=== PATIENT | female | born 1955 | race Caucasian/White ===

== ENCOUNTER 2016-12-11 15:51 | Inpatient (IN) ==
--- NOTE | 2016-12-11 17:48 | Event Note ---
Interval note Patient is a 61-year-old female who underwent incarcerated ventral hernia repair by Dr. Recio. She was discharged approximately a week ago to [facility]. She admits that she has not improved and had pain at the time of discharge. She says she "was faking it" so that she could go home. Her pain has continued. She denies fever nausea vomiting or any problems with bowel movements. She has been having normal-appearing bowel movements. She tolerates diet but admits to poor appetite. She complains of pain mostly along the right lower quadrant near the suspected lateral edge of the repair. Her NORMA drain output has not had very much in the last several days. It appears serosanguineous. Her abdomen is soft appropriately tender with firmness i under the incision that may represent the drain or possibly recurrence and mesh. Her lab work done today at the outside facility largely appeared normal with slight elevation in white blood cell count of 11.2. There was no shift. CT scan was done which prompted her transfer. I read the report which details some phlegmonous change within the abdomen and possible abscess formation. The images are not yet available for review as they have not been loaded into the system. Patient does not appear toxic. We will start antibiotics and IV fluids. We will continue with her diet for now. I will review the CT images when available. This may be something amenable to percutaneous drainage. There is no obvious infection of the incision or any purulent fluid in the NORMA drain.
[2016-12-11] MEDS ORDERED: ONDANSETRON 4 MG/2 ML VIAL IV PRN (17:49)
[2016-12-11] MEDS ORDERED: ACETAMINOPHEN 325 MG TABLET PO PRN (17:49)
[2016-12-11] MEDS: LACTATED RINGERS 1,000 ML IV SCH (19:12)
[2016-12-11] MEDS: metroNIDAZOLE INJ 500 MG in PREMIX 1 EACH IV SCH (19:12)
[2016-12-11] MEDS: MORPHINE 2 MG/1 ML SYRINGE IV PRN (20:10)
[2016-12-11] MEDS: PIPERACILLIN/TAZOBACTAM 3,375 MG in SODIUM CHLORIDE 0.9% 100 ML IV SCH (20:12)
[2016-12-12] MEDS: metroNIDAZOLE INJ 500 MG in PREMIX 1 EACH IV SCH ×3 (01:59→17:50)
[2016-12-12] MEDS: MORPHINE 2 MG/1 ML SYRINGE IV PRN ×4 (03:40→20:29)
[2016-12-12] MEDS: PIPERACILLIN/TAZOBACTAM 3,375 MG in SODIUM CHLORIDE 0.9% 100 ML IV SCH ×3 (03:40→20:28)
[2016-12-12 04:13] LABS: Apearance,Urine CLEAR (Clear); Bilirubin,Urine Negative (Negative); Blood, Urine Small mg/dL (Negative); Glucose,Urine (UA) Negative (Negative); Ketones,Urine Negative (Negative); Nitrite,Urine Negative (Negative); Protein,Urine Negative; RBC,Urine 23 /HPF (0-4); Squamous Epithelial Cell,Urine Occasional /HPF (0-10); Urine Color Yellow (Yellow); Urine Specific Gravity 1.021 (1.001-1.035); Urine Urobilinogen < 2.0 EU/DL (0.2-1.0); WBC,Urine 3 /HPF (0-6)
[2016-12-12] MEDS: LACTATED RINGERS 1,000 ML IV SCH ×2 (06:29→10:31)
[2016-12-12 06:51] LABS: Calcium 8.8 MG/DL (8.5-10.1); Osmolality,Calculated 284.3 MOS/KG (273-304); Potassium 4.4 MMOL/L (3.5-5.1)
[2016-12-12 07:01] LABS: Basophils # 0.1 10*3/uL (0.0-0.2); Eosinophils # 1.4 10*3/uL (0.0-0.87); Eosinophils % 18.5 % (0.00-10.9); Hemoglobin 11.2 GM/DL (12.0-16.0); Immature Granulocytes % 0.5 %; Immature Granulocytes Absolute 0.04 #; Lymphocytes # 1.9 10*3/uL (1.4-4.0); Lymphocytes % 24.3 % (21.3-54.2); Mean Corpuscular Hemoglobin 31 PG (27-34); Mean Corpuscular Volume 96.4 FL (87-102); Mean Platelet Volume 10.3 FL (9.6-12.0); Monocytes % 12.5 % (1.7-12.7); NRBC # 0.04 10*3/uL; Neutrophils # 3.3 10*3/uL (1.4-7.4); Neutrophils % 43.2 % (38.7-73.9); Platelet Count 270 T/CUMM (130-400); Red Blood Count 3.63 MC/CUMM (3.8-5.5); Red Cell Distribution Width 13.8 % (9.3-17.3); White Blood Count 7.6 T/CUMM (4-12)
[2016-12-12 07:51] LABS: Eosinophils 17 % (0-10); Lymphocytes 31 % (20-55); Platelet Estimate Adequate; Segmented Neutrophils 41 % (50-85); Total Cells Counted 100
[2016-12-12] MEDS: PANTOPRAZOLE 40 MG TABLET PO SCH (08:56)
[2016-12-12] MEDS ORDERED: DIAZEPAM 5 MG TABLET ONE (09:24)
[2016-12-12] MEDS: DIAZEPAM 5 MG TABLET PO SCH ×3 (09:34→20:28)
--- NOTE | 2016-12-12 10:08 | Event Note ---
Patient complains of some vaginal bleeding. She is afebrile and her vital signs are stable. She still has tenderness in the right abdomen. She now states that she wants to go home to look for her son. Apparently he got out of [facility] and now is missing. I have reviewed the CT scan and the images look better than what the report says. There is a phlegmon within the right abdomen but I do not see any obvious fluid collection. This may represent an omental infarction. Otherwise there are normal postoperative changes in the subcutaneous tissue and the hernia repair appears intact. I suspect the firm area is just the NORMA drain coursing in that area. She does not have any peritoneal signs. She has mild to moderate tenderness in the right abdomen and is appropriately tender elsewhere. NORMA drain with minimal serosanguineous output. Her labs look okay. Plan: We will stop her IV fluids. Continue diet. Will consult ELECTRIC REFRIGERATOR SERVICER for the vaginal bleeding. Was going to try Toradol for the inflammation within the abdomen which I suspect is a omental infarction. Patient states she is allergic to Toradol. I am going to continue antibiotics for now. We will watch her and see how she does clinically. If she does not seem to improve and may need to repeat the CT scan to see if there is any development of a fluid collection
[2016-12-12] MEDS ORDERED: MAGNESIUM HYDROXIDE SUSP 30 ML UDCUP PO PRN (13:13)
[2016-12-12] MEDS ORDERED: SODIUM PHOSPHATE ENEMA 133 ML BOTTLE RECTAL PRN (13:15)
[2016-12-12] MEDS ORDERED: BISACODYL 10 MG SUPP RECTAL PRN (13:16)
[2016-12-12] MEDS ORDERED: BUTALBITAL/ACETAMIN/CAFFEINE 50-325-40 MG TABLET PO PRN (14:00)
[2016-12-12] MEDS ORDERED: NICOTINE 14 MG/24 HR PATCH TRANSDERM ONE (15:00)
[2016-12-12] MEDS: GABAPENTIN 400 MG CAPSULE PO SCH ×2 (17:50→20:29)
[2016-12-12] MEDS: DOCUSATE SODIUM 100 MG CAPSULE PO SCH (20:28)
[2016-12-12] MEDS: AMITRIPTYLINE 50 MG TABLET PO SCH (20:28)
[2016-12-12] MEDS: clonazePAM 0.5 MG TABLET PO SCH (20:29)
[2016-12-13] MEDS: metroNIDAZOLE INJ 500 MG in PREMIX 1 EACH IV SCH ×3 (02:08→18:20)
[2016-12-13] MEDS: PIPERACILLIN/TAZOBACTAM 3,375 MG in SODIUM CHLORIDE 0.9% 100 ML IV SCH ×3 (03:11→20:31)
[2016-12-13] MEDS: MORPHINE 2 MG/1 ML SYRINGE IV PRN ×5 (04:17→22:55)
[2016-12-13] MEDS: GABAPENTIN 400 MG CAPSULE PO SCH ×4 (09:24→20:31)
[2016-12-13] MEDS: PANTOPRAZOLE 40 MG TABLET PO SCH (09:25)
[2016-12-13] MEDS: ATENOLOL 50 MG TABLET PO SCH (09:25)
[2016-12-13] MEDS: NICOTINE 14 MG/24 HR PATCH TRANSDERM SCH (09:25)
[2016-12-13] MEDS: DOCUSATE SODIUM 100 MG CAPSULE PO SCH ×2 (09:25→23:11)
[2016-12-13] MEDS: clonazePAM 0.5 MG TABLET PO SCH ×2 (09:25→20:31)
[2016-12-13] MEDS: DIAZEPAM 5 MG TABLET PO SCH ×3 (09:25→20:31)
--- NOTE | 2016-12-13 10:18 | Event Note ---
Status post ventral hernia repair. Return with some abdominal pain. CT showed a phlegmon that I suspect is probably omental infarction. I do not see any fluid collection to drain. She has been afebrile vital signs stable. She complains of some vaginal bleeding. Gynecology has been consulted. Her abdomen is soft mildly tender on the right. Nondistended. NORMA drain with serosanguineous fluid. There is no erythema or cellulitis. Dr. Recio will return tomorrow.
[2016-12-13] MEDS: AMITRIPTYLINE 50 MG TABLET PO SCH (20:31)
[2016-12-14] MEDS: metroNIDAZOLE INJ 500 MG in PREMIX 1 EACH IV SCH ×3 (01:40→18:00)
[2016-12-14] MEDS: PIPERACILLIN/TAZOBACTAM 3,375 MG in SODIUM CHLORIDE 0.9% 100 ML IV SCH ×2 (03:00→12:45)
[2016-12-14] MEDS: MORPHINE 2 MG/1 ML SYRINGE IV PRN ×2 (06:53→10:10)
[2016-12-14] MEDS: clonazePAM 0.5 MG TABLET PO SCH (09:17)
[2016-12-14] MEDS: NICOTINE 14 MG/24 HR PATCH TRANSDERM SCH (09:17)
[2016-12-14] MEDS: PANTOPRAZOLE 40 MG TABLET PO SCH (09:19)
[2016-12-14] MEDS: ATENOLOL 50 MG TABLET PO SCH (09:20)
[2016-12-14] MEDS: DOCUSATE SODIUM 100 MG CAPSULE PO SCH (09:20)
[2016-12-14] MEDS: GABAPENTIN 400 MG CAPSULE PO SCH ×3 (09:50→17:00)
[2016-12-14] MEDS: DIAZEPAM 5 MG TABLET PO SCH ×2 (09:56→16:56)
--- NOTE | 2016-12-14 11:06 | General Surg History&Physical ---
Assessment and Plan (1) Ventral hernia with bowel obstruction Status: Acute Assessment and plan: There is not appear to be any complications related to her ventral hernia repair. Her CT scan looks most consistent with an omental torsion but there is some phlegmonous changes and this will need to be evaluated further with another CT scan prior to her going back to [place]. A PROFESSOR OF GENETICS consult has been placed to evaluate for her vaginal bleeding but she has already had a hysterectomy. She is refusing Toradol but I have encouraged her to take Toradol and stop her IV pain medication and see how things go. She looks comfortable and not in any pain when I examine her. She is asking for Pal[place] 10 by think we should start turning down her narcotic medications. Current Visit: No History of Present Illness Chief complaint: Abdominal pain History of present illness: Ms. Mims is a 61 year old female who underwent an open ventral hernia repair with mesh about 2 weeks ago and was readmitted over the weekend after her abdominal pain was not improving and a repeat CT scan was done at [place] which demonstrated some inflammatory changes in the abdomen. She is afebrile and her labs are normal on transfer but she is also complaining of some new vaginal bleeding. Home Medications Medication Instructions Recorded Confirmed Type Atenolol 50 mg PO QAM 11/30/16 12/11/16 History Butalb/Acetaminophen/Caffeine 1 each PO Q4H PRN 11/30/16 12/11/16 History [Esgic Capsule] Gabapentin 800 mg PO QID 11/30/16 12/11/16 History clonazePAM [Clonazepam] 2 mg PO BID 11/30/16 12/11/16 History HYDROcodone/ACETAMIN 7.5-325 1 tablet PO Q4H PRN #0 tablet 12/04/16 12/11/16 Rx [[place] 7.5-325] Nicotine 14 mg/24 Hr Patch 1 patch TRANSDERM DAILY patch 12/04/16 12/11/16 Rx [Nicoderm CQ 14 mg/24 hr Patch] Amitriptyline [Elavil] 50 mg PO BEDTIME 12/11/16 12/11/16 History Bisacodyl Supp [Dulcolax Supp] 1 supp RECTAL DIRECTED 12/11/16 12/11/16 History Ciprofloxacin Tab [Cipro Tab] 500 mg PO BID 12/11/16 12/11/16 History Diazepam Tab [Valium Tab] 5 mg PO TID 12/11/16 12/11/16 History Docusate Sodium [Colace] 100 mg PO BID 12/11/16 12/11/16 History Magnesium Hydroxide Susp [Milk of 30 ml PO DIRECTED PRN 12/11/16 12/11/16 History Magnesia] Sodium Phosphate Enema [Fleet 1 bottle RECTAL DIRECTED PRN 12/11/16 12/11/16 History Enema] Allergies Allergy/AdvReac Type Severity Reaction Status Date / Time ketorolac [From Toradol] AdvReac ITCHING Verified 11/30/16 14:09 Sulfa (Sulfonamide AdvReac ITCHING Verified 11/30/16 14:10 Antibiotics) Medical,Surgical,& Family Hx - Medical History Cardio: History of: Hypertension, Cardiovascular Problems (tachycardiac arrhythmia - pt reports "i've been cleared. ) Psychological: History of: Anxiety Disorders, Depression, Psychiatric/Substance Abuse Tx, Psychiatric Problems (Substance abuse; Manchausen Syndrome) No history of: Previous Suicide Attempt Neurology: History of: Cerebrovascular Accident, Migraine, Neurological Problems (Lacunar infarcts; chronic headaches; pineal cyst [id number]) HEENT: History of: Eye Problem (reading glasses), Dental Problems (teeth missing ) Rheumatology: History of;: Rheumatoid Arthritis Gastrointestinal: History of: GERD, GI Problems (ventral hernia) Musculoskeletal: History of: Back/Neck Problems (chronic back pain) Other: History of: Miscellaneous Medical Problems (Chronic pain syndrome) - Surgical History Abdominal Surgeries: Surgical HX of: Hernia Repair (two weeks ago) Reproductive Surgeries: Surgical HX of;: Hysterectomy (2014) Orthopedic Surgeries: Surgical HX of;: Orthopedic Surgery (Right ankle; patella ; bilateral shoulder) - Family History Family History: Reports;: Family Hypertension (father) - Social History Smoking Status: Current every day smoker Frequency of Alcohol Use: None Exam - Constitutional Vitals: Period Temp Pulse Resp BP Sys/Silva Pulse Ox Last 24 Hr 97.2 F-99.0 F 65-79 16-20 82-119/50-85 91-96 General appearance: normal weight, no acute distress - Head Head exam: Present: normal inspection, normocephalic - Eye Eye exam: Present: EOMI Pupils: Present: FRANCO - ENT ENT exam: Present: normal exam Mouth exam: Present: normal external inspection, normal voice - Neck Neck exam: Present: normal inspection, trachea midline - Respiratory Respiratory exam: Present: clear to auscultation bilaterally. Absent: accessory muscle use, chest wall tenderness - Cardiovascular Cardiovascular exam: Present: RRR. Absent: systolic murmur, tachycardia - GI/Abdominal GI/Abdominal exam: Present: tenderness (Appropriate postoperative tenderness. Midline incision is clean and isela were removed with Steri-Strips placed. NORMA drain is serosanguineous.), soft - Extremities Exam Extremities exam: Present: normal inspection, normal capillary refill - Back Exam Back exam: Present: normal inspection - Neurological Exam Neurological exam: Present: alert, oriented X3 Speech: Present: normal - Skin Skin exam: Present: normal color, warm - Constitutional Constitutional: Present: as per HPI - EENT Nose, mouth and throat: Present: as per HPI - Cardiovascular Cardiovascular: Present: as per HPI - Respiratory Respiratory: Present: as per HPI - Gastrointestinal Gastrointestinal: Present: as per HPI - Genitourinary Genitourinary: Present: as per HPI - Musculoskeletal Musculoskeletal: Present: as per HPI - Neurological Neurological: Present: as per HPI - Endocrine Endocrine: Present: as per HPI Hematologic/Lymphatic: Present: as per HPI Quality Measures - VTE Contraindication to Pharmacological VTE Prophylaxis: High Risk of Bleeding Results - Labs CBC & BMP: 12/12/16 05:42 12/12/16 05:41 - Diagnostic Findings Procedure: CT Abdomen and Pelvis: image reviewed by me, report reviewed by me
[2016-12-14] MEDS: KETOROLAC 30 MG/1 ML VIAL IV SCH ×2 (12:52→17:30)
--- NOTE | 2016-12-14 16:17 | Discharge Summary ---
Hospital Course - Hospital Course Hospital Course: This patient was readmitted to [facility] direct admission from [facility] because of the possibility of an abdominal infection following a ventral hernia repair with mesh. She was afebrile with a normal white blood cell count and no left shift and she was also complaining of vaginal bleeding but her hemoglobin was stable on admission. Initially she was admitted and placed on IV antibiotics by 1 of my partners and a VIOLIN TUTOR consult was obtained. The first day that I saw her she was asking for some increased IV pain medication but I informed her that we need to start titrating her off of this and discontinued her morphine and offered her Toradol. Shortly thereafter she was asking to be discharged from the hospital and asking to defer her VIOLIN TUTOR workup until she was an outpatient. Dr. Hogue was consulted but it looks as though the patient left prior to being seen by her and she will be referred as an outpatient. She will be sent home on a course of 2 weeks of oral antibiotics and we will get a repeat CT scan through the clinic. Her NORMA drain was left in place and her isela were removed and Steri-Strips were placed. She was told to call us back if the vaginal bleeding got worse or she develops any worsening abdominal pain or fevers Diagnosis - Discharge Diagnosis (1) Ventral hernia with bowel obstruction Status: Acute Discharge Plan - Discharge Data Disposition: Disch To Home/Self Care Condition at Discharge: Stable Discharge Diet: advance to your usual diet Activity: no lifting Hygiene: may shower Weight Bearing at Discharge: full weight bearing Driving: not until seen by doctor Contact your physician if you experience:: fever over 101, Difficulty voiding, Redness or swelling, Nausea/Vomiting, Shortness of breath, Bleeding, pain uncontrolled by pain medications Wound / Dressing Care Instructions: Strip NORMA drain 3 times daily and record output daily. Wear abdominal binder at all times. - Discharge Medications New Ciprofloxacin Tab [Cipro Tab] 500 mg PO BID #28 tablet HYDROcodone/ACETAMIN 7.5-325 [[place] 7.5-325] 1 tablet PO Q4H PRN #30 tablet PRN Reason: Pain Moderate (4-7) metroNIDAZOLE TAB [Flagyl Cap/Tab] 500 mg PO TID #42 tablet Continue Gabapentin 800 mg PO QID Atenolol 50 mg PO QAM HYDROcodone/ACETAMIN 7.5-325 [[place] 7.5-325] 1 tablet PO Q4H PRN #0 tablet PRN Reason: Pain Moderate To Severe (4-10) Nicotine 14 mg/24 Hr Patch [Nicoderm CQ 14 mg/24 hr Patch] 1 patch TRANSDERM DAILY patch Amitriptyline [Elavil] 50 mg PO BEDTIME Magnesium Hydroxide Susp [Milk of Magnesia] 30 ml PO DIRECTED PRN PRN Reason: Constipation Sodium Phosphate Enema [Fleet Enema] 1 bottle RECTAL DIRECTED PRN PRN Reason: Constipation Docusate Sodium [Colace] 100 mg PO BID Bisacodyl Supp [Dulcolax Supp] 1 supp RECTAL DIRECTED clonazePAM [Clonazepam] 2 mg PO BID Butalb/Acetaminophen/Caffeine [Esgic Capsule] 1 each PO Q4H PRN PRN Reason: Headache Diazepam Tab [Valium Tab] 5 mg PO TID Discontinued Ciprofloxacin Tab [Cipro Tab] 500 mg PO BID - Follow Up or Referral Follow Up: Yunior Recio MD [Physician] - 1 Week - Forms/Instructions Exam - Constitutional Vitals: Period Temp Pulse Resp BP Sys/Silva Pulse Ox Last 24 Hr 97.2 F-99.0 F 65-94 16-20 82-142/50-90 91-96 General appearance: normal weight, no acute distress - Head Head exam: Present: normal inspection, normocephalic - Eye Eye exam: Present: EOMI Pupils: Present: FRANCO - ENT ENT exam: Present: normal exam - Neck Neck exam: Present: normal inspection - Respiratory Respiratory exam: Present: clear to auscultation bilaterally. Absent: accessory muscle use, chest wall tenderness - Cardiovascular Cardiovascular exam: Present: regular rate and rhythm. Absent: systolic murmur , tachycardia - GI/Abdominal GI/Abdominal exam: Present: normal bowel sounds, soft, other (NORMA drain has minimal output. [place] removed and Steri-Strips were placed. Staple line is clean). Absent: tenderness, rebound - Extremities Exam Extremities exam: Present: normal inspection, normal capillary refill - Back Exam Back exam: Present: normal inspection - Neurological Exam Neurological exam: Present: alert, oriented X3 - Psychiatric Psychiatric exam: Present: normal affect, normal mood - Skin Skin exam: Present: normal color, warm DS: Provider Date of admission: 12/11/16 16:28 Primary care physician: Angelo Sheridan Attending physician on admission: Yunior Recio MD Consults: 12/11/16 17:59 Consult to Pharmacy [CONS] Routine Reason for Pharmacy Consult: Adjust Meds Renal Funct 12/12/16 10:16 Consult to Physician [CONS] Routine Comment: consult Wednesday Consulting Provider: Nunu Hogue Consulting Provider Notified: Yes When should Consulting Provider be notified: Now Consult to Specialist Group: OBGYN Person Notified: kavin called Date Notified: 12/14/16 Time Notified: 08:52 Discharging clinician: Yunior Recio MD Expected date of discharge: 12/14/16
[2016-12-14 20:22] VITALS: BP 114/99
--- NOTE | 2016-12-16 08:45 | Physician Query Form ---
CLICK EDIT DOCUMENT TO SELECT QUERY ANSWER --> OK --> SIGN Elza Chacon RN Clinical File Drawer Finisher W) [phone] (f) [phone] [email or web address] PROVIDERS: Make your selection(s) from the choices in EACH section by typing an "x" and enter comments in the comment section. Please use your independent medical judgment in providing your response. This request does not imply that any particular answer is desired or expected. CLINICAL INDICATORS: (Providers should not edit this section) The below diagnosis was documented in the record, but is not consistently noted in subsequent documentation. Based on documentation of "There is a phlegmon within the right abdomen but I do not see any obvious fluid collection. This may represent an omental infarction." "CT most consistent with omental torsion" Diagnosis: Omental Infarction Please clarify the following: ( ) The above diagnosis was monitored, evaluated, and/or treated and is a confirmed diagnosis ( ) The above diagnosis was ruled out (x) The above diagnosis is still a likely, suspected, probable diagnosis ( ) Other, please specify: ( ) Clinically unable to determine COMMENTS: Use of terms such as suspected, likely, or probable (associated with a specific diagnosis that is being evaluated, monitored, or treated as if it exists) are acceptable and can be restated in the discharge summary if not ruled out. MTDD
== END 2016-12-14 18:20 | disposition home health service (06) | DRG 393 ==
LOC: N.3E 16:28
PROVIDERS: ADMIT Surgery; ATTEND Surgery

== ENCOUNTER 2017-03-23 19:00 | Inpatient (IN) ==
[2017-03-23] MEDS ORDERED: SODIUM CHLORIDE 0.9% 1,000 ML IV STA (19:34)
[2017-03-23] MEDS ORDERED: DEXTROSE 50% 25 GM/50 ML SYRINGE IV PRN ×2 (19:34→22:08)
[2017-03-23 19:45] LABS: Basophils # 0.1 10*3/uL (0.0-0.2); Basophils % 0.5 % (0.0-0.8); Eosinophils # 0.1 10*3/uL (0.0-0.87); Eosinophils % 1.2 % (0.00-10.9); Hematocrit 41.8 VOL% (35.7-47.0); Hemoglobin 13.4 GM/DL (12.0-16.0); Immature Granulocytes % 0.3 %; Immature Granulocytes Absolute 0.03 #; Lymphocytes # 1.8 10*3/uL (1.4-4.0); Lymphocytes % 18.3 % (21.3-54.2); Mean Corpuscular HGB Conc 32.1 GM/DL (32-36); Mean Corpuscular Hemoglobin 31 PG (27-34); Mean Platelet Volume 10.7 FL (9.6-12.0); Monocytes # 0.8 10*3/uL (0.11-0.8); Monocytes % 8.4 % (1.7-12.7); Neutrophils # 7.1 10*3/uL (1.4-7.4); Neutrophils % 71.3 % (38.7-73.9); Platelet Count 193 T/CUMM (130-400); Red Cell Distribution Width 14.8 % (9.3-17.3)
[2017-03-23] MEDS ORDERED: levETIRAcetam 500 MG/5 ML VIAL IV ONE (19:45)
[2017-03-23 19:57] LABS: Alanine Aminotransferase 13 U/L (13-56); Albumin 3.5 G/DL (3.4-5.0); Alkaline Phosphatase 108 U/L (45-117); Aspartate Amino Transferase 22 U/L (0-37); Bilirubin,Total < 0.39 MG/DL (0.2-1.0); Blood Urea Nitrogen 15 MG/DL (7-18); Calcium 8.9 MG/DL (8.5-10.1); Glucose 57 MG/DL (74-106); Magnesium 2.2 MG/DL (1.8-2.4); Osmolality,Calculated 284.8 MOS/KG (273-304); Potassium 3.4 MMOL/L (3.5-5.1); Sodium 144 MMOL/L (136-145); Total Protein 6.9 G/DL (6.4-8.3)
--- NOTE | 2017-03-23 20:00 | Emergency Department Note ---
Justin Carter Mantricia, am scribing for, and in the presence of, Omar Chavez MD 19:41. Kathy Carter Charles R, MD, personally performed the services described in this documentation, ascribed by Brigette Anderson in my presence, and it is both accurate and complete . Arrival - Arrival Chief Complaint: Seizure Stated Complaint: Hypoglycemia ED Nursing Triage Note: C/C hypoglycemia, possible seizure. Pt was AAOx3 went to lay down and 30 minutes after pt was found by family to be AMS, nose bleeding , bruising to tongue and hypoglycemia with a BS 31mg/dl by EMS. Pt was given 1 Amp D50 IVP. Accucheck 114mg/dl after. Pt has history of seizures of which she takes Neurotin. Mode of Arrival: Stretcher Limitations: No Limitations Source: Patient, Family Time Seen by Provider: 03/23/17 19:28 - History of Present Illness HPI Narrative: Pt is a 62 y/o white female arriving to ED by EMS with c/o possible seizure and hypoglycemia that onset today. Pt was found by daughter today to be AMS, nose bleeding, biting her tongue, and hypoglycemic with a blood sugar of 31 mg/ dl by EMS. She states that she did eat an entire bag of chocolate today. Pt was given 1 amp D50 IVP per EMS BROADCAST MAINTENANCE ENGINEER. Afterwards, pt blood sugar was 114 mg/dl, EMS reports. Pt has a Hx of seizures and is taking Neurotin. she reports that she does not take Valium anymore and has been out of her Atenolol until today. Pt/ now c/o mild confusion and a right sided headache. No other complaints were reported to ED. Onset (ago): hour(s) Consistency: constant Severity: moderate Allergies/Adverse Reactions: Allergies Allergy/AdvReac Type Severity Reaction Status Date / Time ketorolac [From Toradol] AdvReac ITCHING Verified 03/23/17 19:18 Sulfa (Sulfonamide AdvReac ITCHING Verified 03/23/17 19:18 Antibiotics) Home Medications: Home Medications Medication Instructions Recorded Confirmed Type Atenolol 50 mg PO QAM 11/30/16 12/11/16 History Butalb/Acetaminophen/Caffeine 1 each PO Q4H PRN 11/30/16 12/11/16 History [Esgic Capsule] Gabapentin 800 mg PO QID 11/30/16 12/11/16 History clonazePAM [Clonazepam] 2 mg PO BID 11/30/16 12/11/16 History HYDROcodone/ACETAMIN 7.5-325 1 tablet PO Q4H PRN #0 tablet 12/04/16 12/11/16 Rx [[place] 7.5-325] Nicotine 14 mg/24 Hr Patch 1 patch TRANSDERM DAILY patch 12/04/16 12/11/16 Rx [Nicoderm CQ 14 mg/24 hr Patch] Amitriptyline [Elavil] 50 mg PO BEDTIME 12/11/16 12/11/16 History Bisacodyl Supp [Dulcolax Supp] 1 supp RECTAL DIRECTED 12/11/16 12/11/16 History Diazepam Tab [Valium Tab] 5 mg PO TID 12/11/16 12/11/16 History Docusate Sodium [Colace] 100 mg PO BID 12/11/16 12/11/16 History Magnesium Hydroxide Susp [Milk of 30 ml PO DIRECTED PRN 12/11/16 12/11/16 History Magnesia] Sodium Phosphate Enema [Fleet 1 bottle RECTAL DIRECTED PRN 12/11/16 12/11/16 History Enema] Ciprofloxacin Tab [Cipro Tab] 500 mg PO BID #28 tablet 12/14/16 Rx HYDROcodone/ACETAMIN 7.5-325 1 tablet PO Q4H PRN #30 tablet 12/14/16 Rx [[place] 7.5-325] metroNIDAZOLE TAB [Flagyl Cap/Tab] 500 mg PO TID #42 tablet 12/14/16 Rx Review of System - Review of System 12 point system: reviewed and no additional remarkable complaints except as stated - Review of System Constitutional: Present: other (seizure; hypoglycemia). Absent: chills, diaphoresis, fever Eyes: Absent: pain Head/Ears/Nose/Throat: Absent: earache Respiratory: Absent: cough Cardiovascular: Absent: chest pain Gastrointestinal: Absent: abdominal pain, nausea, vomiting, diarrhea Medical,Surgical,& Family Hx - Medical History Cardio: History of: Hypertension, Cardiovascular Problems (tachycardiac arrhythmia - pt reports "i've been cleared. ) Psychological: History of: Anxiety Disorders, Depression, Psychiatric/Substance Abuse Tx, Psychiatric Problems (Substance abuse; Manchausen Syndrome) No history of: Previous Suicide Attempt Neurology: History of: Cerebrovascular Accident, Migraine, Seizures, Neurological Problems (Lacunar infarcts; chronic headaches; pineal cyst [id number]) HEENT: History of: Eye Problem (reading glasses), Dental Problems (teeth missing ) Endocrine: No history of: Diabetes Mellitus (IDDM), Diabetes Mellitus (NIDDM) Rheumatology: History of;: Rheumatoid Arthritis Gastrointestinal: History of: GERD, GI Problems (ventral hernia) Musculoskeletal: History of: Back/Neck Problems (chronic back pain) Other: History of: Miscellaneous Medical Problems (Chronic pain syndrome) - Surgical History Abdominal Surgeries: Surgical HX of: Hernia Repair Reproductive Surgeries: Surgical HX of;: Hysterectomy (2015) Orthopedic Surgeries: Surgical HX of;: Orthopedic Surgery (Right ankle; patella ; bilateral shoulder) - Family History Family History: Reports;: Family Hypertension (father) - Social History Smoking Status: Current every day smoker Frequency of Alcohol Use: None Type of Drug Use: None Exam Vital Signs: Vital Signs Temperature 97.4 F L 03/23/17 19:01 Pulse Rate 89 03/23/17 19:01 Respiratory Rate 17 03/23/17 19:01 Blood Pressure 119/74 03/23/17 19:01 O2 Sat by Pulse Oximetry 95 03/23/17 19:01 - General General appearance: alert, in no apparent distress - Head Head exam: Present: atraumatic, normocephalic - Eye Eye exam: Present: normal appearance, PERRL, EOMI - ENT ENT exam: Present: normal exam, normal oropharynx, mucous membranes moist, other (dried blood in nose; abrasion to tongue) - Neck Neck exam: Present: normal inspection - Chest Chest inspection: Present: normal inspection - Respiratory Respiratory exam: Present: rhonchi (bilateral) - Cardiovascular Cardiovascular exam: Present: regular rate, normal rhythm, normal heart sounds - Abdominal Exam Abdominal exam: Present: soft. Absent: distention, tenderness, guarding, rebound - Extremities Exam Extremities exam: Present: normal inspection - Back Exam Back exam: Present: normal inspection - Neurological Exam Neurological exam: Present: alert, oriented X3, CN II-XII intact - Psychiatric Psychiatric exam: Present: normal affect, normal mood - Skin Skin exam: Present: warm, dry, intact, normal color Course - Consultations Consultation #1: Hospitalist will admit patient Time: 21:28 Results - Labs CBC & BMP: 08/08/17 19:14 03/23/17 19:14 Lab Results: I have reviewed the patients labs - Diagnostic Findings Procedure: CT: report reviewed by me (Head: 1. Generalized saturated and finds compatible with microvascular ischemia are demonstrated. Multiple lacunar infarctions involving the yazmin, right thalamus, and right basal ganglia are present. 2. 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 MRI brain prior to and following intravenous contrast administration is recommended to exclude more aggressive pathology.) Critical Care Time Critical Care Time: Yes Total Critical Care Time: 30 Disposition Clinical Impression: Generalized seizure, Anxiety and depression, Nicotine dependence, UTI (urinary tract infection), Hypoglycemia, New onset seizure Case discussed with: patient, patient's family Disposition: Still a Patient Condition: Stable Time of Disposition: 21:22
[2017-03-23] MEDS ORDERED: DEXTROSE 50% 25 GM/50 ML SYRINGE IV ONE (20:04)
--- NOTE | 2017-03-23 20:08 | EKG Report ---
Stationary ECG Study [facility] ER Test Date: 03/23/2017 8:06:42 PM Pat Name: ALEXANDER TANG Department: Room: Gender: F Cosmetic Manager: : 1955 Requested by: mOar Caba Order Number: [id number] Eryn MD: ROBBI ACEVEDO Intervals [place] Rate: 75 P: 57 CA: 163 QRS: 52 QRSD: 87 T: 56 QT: 349 QTc: 378 Interpretive Statements SINUS RHYTHM at 75 bpm Mild NST Electronically Signed On 03-24-17 07:49:21 CDT by ROBBI ACEVEDO [email or web address]
[2017-03-23 20:25] LABS: Apearance,Urine Slightly Hazy (Clear); Bacteria,Urine Moderate /HPF (Few); Bilirubin,Urine Negative (Negative); Blood, Urine Negative (Negative); Glucose,Urine (UA) 50 mg/dL (Negative); Hyaline Casts,Urine 8 /LPF (0-3); Ketones,Urine Negative (Negative); Mucus,Urine Occasional /LPF (Occasional); Nitrite,Urine Negative (Negative); Protein,Urine 30 MG/DL; RBC,Urine 2 /HPF (0-4); Squamous Epithelial Cell,Urine Occasional /HPF (0-10); Urine Color Yellow (Yellow); Urine Specific Gravity 1.016 (1.001-1.035); Urine Urobilinogen < 2.0 EU/DL (0.2-1.0); WBC,Urine 18 /HPF (0-6)
[2017-03-23 20:28] LABS: Barbiturates Screen,Urine Negative (Negative); Benzodiazepines Screen,Urine Negative (Negative); Cannabinoid Screen,Urine Negative (Negative); Opiate Screen,Urine Negative (Negative); Phencyclidine Screen,Urine Negative (Negative)
[2017-03-23 20:33] LABS: Ammonia 19 UMOL/L (11-32)
--- NOTE | 2017-03-23 20:36 | CT Report ---
CT head/brain wo con Indication: Seizure activity. Comparison: None. Technique: CT of the brain was performed without administration of intravenous contrast. The CT examination was performed using one or more of the following dose reduction techniques: Automatic exposure control, adjustment of the mA and kV according to patient size, use of acute or iterative reconstruction techniques. Findings: There is no evidence of acute intracranial hemorrhage, mass, or infarction. Ventricles appear within normal limits. Pineal gland is enlarged measuring up to 12 and 13 mm in transverse dimension. Peripheral calcification of the pineal is associated. Generalized areas of periventricular hypoattenuation of white matter could reflect microvascular ischemia. Previous right thalamic lacunar infarction and right basal ganglia lacunar infarction are demonstrated. The basal cisterns are patent. No significant abnormality is demonstrated to involve the posterior fossa or cerebellum. Pontine lacunar infarction is present to the left midline. Orbits and globes demonstrate no evidence of significant pathology. The paranasal sinuses are clear. No significant abnormality is demonstrated to involve the mastoid air cells. The calvarium and overlying soft tissues demonstrate no evidence of acute pathology. Impression: 1. Generalized saturated and finds compatible with microvascular ischemia are demonstrated. Multiple lacunar infarctions involving the yazmin, right thalamus, and right basal ganglia are present. 2. 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 MRI brain prior to and following intravenous contrast administration is recommended to exclude more aggressive pathology. 03/23/2017 8:27 PM PROCEDURE INTERPRETED AT [facility] DEPARTMENT OF RADIOLOGY Final Report Signed by: Dr. Kraig Womack
[2017-03-23] MEDS ORDERED: cefTRIAXone 1,000 MG in SODIUM CHLORIDE 0.9% 100 ML IV STA (20:53)
[2017-03-23] MEDS ORDERED: cefTRIAXone 1,000 MG VIAL ONE (21:06)
[2017-03-23] MEDS ORDERED: ONDANSETRON 4 MG/2 ML VIAL IV PRN (22:06)
[2017-03-23] MEDS ORDERED: ACETAMINOPHEN 325 MG TABLET PO PRN (22:06)
[2017-03-23] MEDS ORDERED: ZALEPLON 5 MG CAPSULE PO PRN (22:06)
[2017-03-23] MEDS ORDERED: GLUCAGON 1 MG VIAL IM PRN (22:08)
--- NOTE | 2017-03-23 22:16 | Hospitalist History & Physical ---
Assessment and Plan (1) Generalized seizure Status: Acute Assessment and plan: Patient loaded with Keppra in the emergency department. Consult neurology. Current Visit: Yes (2) Hypoglycemia Status: Acute Assessment and plan: Accu-Cheks every 4 hours. Check C-peptide and serum gastrin levels. Current Visit: Yes (3) Urinary tract infection Status: Acute Assessment and plan: Continue Rocephin. Follow-up culture. Current Visit: Yes Qualifiers: Urinary tract infection type: acute cystitis Hematuria presence: without hematuria Qualified Code(s): N30.00 - Acute cystitis without hematuria (4) Nicotine dependence Status: Acute Current Visit: Yes Qualifiers: Nicotine product type: cigarettes Substance use status: uncomplicated Qualified Code(s): F17.210 - Nicotine dependence, cigarettes, uncomplicated (5) Anxiety and depression Status: Chronic Current Visit: Yes History of Present Illness Chief complaint: seizure, hypoglycemia History of present illness: Ms. Mims is a 62 year old female arriving to ED by EMS with c/o possible seizure and hypoglycemia that onset today. Pt was found by daughter today to be AMS, nose bleeding, biting her tongue, and hypoglycemic with a blood sugar of 31 mg/dl by EMS. She states that she did eat an entire bag of chocolate today. Pt was given 1 amp D50 IVP per EMS CORE MANAGER. Afterwards, pt blood sugar was 114 mg/dl , EMS reports. Pt has a Hx of seizures and is taking Neurotin. she reports that she does not take Valium anymore and has been out of her Atenolol until today. No other complaints were reported to ED. She remebers eating lunch then feeling nauseous. She awoke to find EMS standing over her. She was found by her daughter who called EMS. She did bite her tongue. She did not lose bowel or bladder control. She has had a couple of seizures in the past but is not on any medications for it. Home Medications Medication Instructions Recorded Confirmed Type Atenolol 50 mg PO QAM 11/30/16 12/11/16 History Butalb/Acetaminophen/Caffeine 1 each PO Q4H PRN 11/30/16 12/11/16 History [Esgic Capsule] Gabapentin 800 mg PO QID 11/30/16 12/11/16 History clonazePAM [Clonazepam] 2 mg PO BID 11/30/16 12/11/16 History HYDROcodone/ACETAMIN 7.5-325 1 tablet PO Q4H PRN #0 tablet 12/04/16 12/11/16 Rx [[place] 7.5-325] Nicotine 14 mg/24 Hr Patch 1 patch TRANSDERM DAILY patch 12/04/16 12/11/16 Rx [Nicoderm CQ 14 mg/24 hr Patch] Amitriptyline [Elavil] 50 mg PO BEDTIME 12/11/16 12/11/16 History Bisacodyl Supp [Dulcolax Supp] 1 supp RECTAL DIRECTED 12/11/16 12/11/16 History Diazepam Tab [Valium Tab] 5 mg PO TID 12/11/16 12/11/16 History Docusate Sodium [Colace] 100 mg PO BID 12/11/16 12/11/16 History Magnesium Hydroxide Susp [Milk of 30 ml PO DIRECTED PRN 12/11/16 12/11/16 History Magnesia] Sodium Phosphate Enema [Fleet 1 bottle RECTAL DIRECTED PRN 12/11/16 12/11/16 History Enema] Ciprofloxacin Tab [Cipro Tab] 500 mg PO BID #28 tablet 12/14/16 Rx HYDROcodone/ACETAMIN 7.5-325 1 tablet PO Q4H PRN #30 tablet 12/14/16 Rx [[place] 7.5-325] metroNIDAZOLE TAB [Flagyl Cap/Tab] 500 mg PO TID #42 tablet 12/14/16 Rx Allergies Allergy/AdvReac Type Severity Reaction Status Date / Time ketorolac [From Toradol] AdvReac ITCHING Verified 03/23/17 19:18 Sulfa (Sulfonamide AdvReac ITCHING Verified 03/23/17 19:18 Antibiotics) Medical,Surgical,& Family Hx - Medical History Cardio: History of: Hypertension, Cardiovascular Problems (tachycardiac arrhythmia - pt reports "i've been cleared. ) Psychological: History of: Anxiety Disorders, Depression, Psychiatric/Substance Abuse Tx, Psychiatric Problems (Substance abuse; Manchausen Syndrome) No history of: Previous Suicide Attempt Neurology: History of: Cerebrovascular Accident, Migraine, Seizures, Neurological Problems (Lacunar infarcts; chronic headaches; pineal cyst [id number]) HEENT: History of: Eye Problem (reading glasses), Dental Problems (teeth missing ) Endocrine: No history of: Diabetes Mellitus (IDDM), Diabetes Mellitus (NIDDM) Rheumatology: History of;: Rheumatoid Arthritis Gastrointestinal: History of: GERD, GI Problems (ventral hernia) Musculoskeletal: History of: Back/Neck Problems (chronic back pain) Other: History of: Miscellaneous Medical Problems (Chronic pain syndrome) - Surgical History Abdominal Surgeries: Surgical HX of: Hernia Repair Reproductive Surgeries: Surgical HX of;: Hysterectomy (2015) Orthopedic Surgeries: Surgical HX of;: Orthopedic Surgery (Right ankle; patella ; bilateral shoulder) - Family History Family History: Reports;: Family Hypertension (father) - Social History Smoking Status: Current every day smoker Have you smoked in the last 12 months: Yes Time spent discussing smoking cessation with patient: 3 to 10 minutes Frequency of Alcohol Use: None Type of Drug Use: None Marital Status: Single Lives With:: Children Functional capacity: independent ambulation 12 point system: reviewed and no additional remarkable complaints except as stated - Neurological Neurological: Present: as per HPI Exam - Constitutional Vitals: Period Temp Pulse Resp BP Sys/Silva Pulse Ox Last 24 Hr 97.4 F-97.4 F 89-89 17-17 119-119/74-74 95 Exam: Constitutional System: No distress. No tremulousness. The patient was alert awake and oriented 3. No acute distress. Pleasant and cooperative.. Head: Normocephalic, atraumatic. Ears, Nose and Throat System: No pain or tenderness. No epistaxis or discharge. bite swann on tongue noted from seizure. Eyes System: Pupils equal, round, and reactive. Extraocular muscles intact. Neck: Supple, without adenopathy, No jugular venous distention. No thyromegaly, neck mass, or prior surgery apparent. Respiratory System: Chest clear to auscultation. Cardiovascular System: Heart with regular rate and rhythm. No murmur. GI System: Abdomen soft, nontender. Normo active bowel sounds present. Musculoskeletal System: limbs with no pedal edema. Full distal pulses. Neurological System: No discernable sensory deficit. No aphasia Psychiatric System: Conversation is rational Results - Labs CBC & BMP: 03/23/17 19:14 03/23/17 19:14 Lab Results: I have reviewed the past 24 hour labs
[2017-03-24] MEDS: SODIUM CHLORIDE 0.45% 1,000 ML IV SCH ×3 (00:29→18:37)
[2017-03-24] MEDS ORDERED: PNEUMOCOCCAL VACCINE (23 VALENT) 0.5 ML VIAL IM ONE (02:11)
[2017-03-24 06:39] LABS: Albumin 2.7 G/DL (3.4-5.0); Osmolality,Calculated 286.8 MOS/KG (273-304); Potassium 3.7 MMOL/L (3.5-5.1); Risk Ratio 2.56; Thyroid Stimulating Hormone 0.551 uIU/ml (0.358-3.74); Total Protein 5.6 G/DL (6.4-8.3); VLDL CHOLESTEROL 12.6 MG/DL
--- NOTE | 2017-03-24 06:44 | XRay Report ---
XR chest 1V portable Indication: Seizures Comparison: 23 March 2011 Findings: The heart and mediastinum are normal in size and configuration. The pulmonary vascularity is normal in caliber. Small amount of linear density are present in both lung bases. No other lung infiltrates, effusions, pneumothorax or other abnormality is demonstrated. Impression: Small amounts of linear density could indicate atelectasis or scarring. PROCEDURE INTERPRETED AT [facility] DEPARTMENT OF RADIOLOGY Final Report Signed by: Dr. Sahil Saunders
[2017-03-24] MEDS: PANTOPRAZOLE 40 MG TABLET PO SCH (09:36)
[2017-03-24] MEDS: NICOTINE 14 MG/24 HR PATCH TRANSDERM SCH (09:36)
[2017-03-24] MEDS: GABAPENTIN 400 MG CAPSULE PO SCH ×4 (09:36→20:30)
[2017-03-24] MEDS ORDERED: cefTRIAXone 1,000 MG in SODIUM CHLORIDE 0.9% 100 ML IV SCH (10:00)
--- NOTE | 2017-03-24 10:03 | Hospitalist Progress Note ---
Assessment and Plan (1) Anxiety and depression Status: Chronic Assessment and plan: Long-standing history with medical intervention. 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 Current Visit: Yes (2) Generalized seizure Status: Chronic Assessment and plan: History of substance abuse, small vessel intracranial disease, and infrequent but recurrent seizures. Current Visit: Yes (3) Hypoglycemia Status: Acute Assessment and plan: Noted on fingerstick by EMS at the scene. Review of previous laboratory work shows no tendency to hypoglycemia. Current Visit: Yes Hospitalist: Subjective Interval history: 62-year-old female with a history of infrequent seizures, substance abuse, anxiety depressive disorder; who had a loss of consciousness while visiting family members. At the scene she is reported to have a blood sugar of 31 by the EMS. She appears to have an extensive history of anxiety disorder depression and remote substance abuse on amitriptyline and gabapentin. She is also listed as taking Klonopin and a barbiturate-containing pain medication on her initial medication list not replicated on the active medication list. She apparently has chronic axial skeletal disease with chronic pain disorder. Since admission patient has been stable hemodynamically with no recurrent symptoms. Blood sugar this morning is 100 with stable laboratory panel. Her rhythm is sinus and CT scan shows microvascular changes predominantly. Exam - Constitutional Vitals: Period Temp Pulse Resp BP Sys/Silva Pulse Ox Last 24 Hr 97.4 F-98.0 F 63-89 16-18 96-119/56-79 91-100 General appearance: under weight - Respiratory Respiratory exam: Present: clear to auscultation bilaterally. Absent: rales, rhonchi, wheezes - Cardiovascular Cardiovascular exam: Present: regular rate and rhythm - GI/Abdominal GI/Abdominal exam: Present: normal bowel sounds. Absent: tenderness - Extremities Exam Extremities exam: Absent: edema - Neurological Exam Neurological exam: Present: alert, oriented X3 Results - Labs CBC & BMP: 03/23/17 19:14 03/24/17 05:25 Labs: Albumin 2.7 Prolactin 22
[2017-03-24] MEDS: ENOXAPARIN 40 MG/0.4 ML SYRINGE SUBCUT SCH ×2 (11:19→13:49)
--- NOTE | 2017-03-24 14:29 | Neurology Consult Note ---
History of Present Illness History of present illness: 52 years old right-handed white lady who was admitted to the hospital with one generalized tonic-clonic seizure associated with tongue biting. Patient was found to have blood sugar of 31. She has not had seizures in her entire life. She has been taking Neurontin for neuropathic pain syndrome. No family history of seizures. Family found her on the floor. Patient has no recollection of the event. MRI of the brain revealed generalized atrophy and some small vessel disease. UA is positive for UTI. No previous history of stroke, TIAs, epilepsy or seizures. No history of head trauma. No history of brain infection either. Home Medications Medication Instructions Recorded Confirmed Type Atenolol 25 mg PO QAM 11/30/16 03/24/17 History Gabapentin 800 mg PO QID 11/30/16 03/24/17 History Amitriptyline [Elavil] 50 mg PO BEDTIME 12/11/16 03/24/17 History Diazepam Tab [Valium Tab] 5 mg PO BID 12/11/16 03/24/17 History Zolpidem Tartrate [Ambien] 10 mg PO BEDTIME PRN 03/24/17 03/24/17 History Allergies Allergy/AdvReac Type Severity Reaction Status Date / Time ketorolac [From Toradol] AdvReac ITCHING Verified 03/23/17 19:18 Sulfa (Sulfonamide AdvReac ITCHING Verified 03/23/17 19:18 Antibiotics) 12 point system: reviewed and no additional remarkable complaints except as stated Medical,Surgical,& Family Hx - Medical History Cardio: History of: Hypertension, Cardiovascular Problems (tachycardiac arrhythmia - pt reports "i've been cleared. ) Psychological: History of: Anxiety Disorders, Depression, Psychiatric/Substance Abuse Tx, Psychiatric Problems (Substance abuse; Manchausen Syndrome) No history of: Previous Suicide Attempt Neurology: History of: Cerebrovascular Accident, Migraine, Seizures, Neurological Problems (Lacunar infarcts; chronic headaches; pineal cyst [id number]) HEENT: History of: Eye Problem (reading glasses), Dental Problems (teeth missing ) Endocrine: No history of: Diabetes Mellitus (IDDM), Diabetes Mellitus (NIDDM) Rheumatology: History of;: Rheumatoid Arthritis Gastrointestinal: History of: GERD, GI Problems (ventral hernia 2016) Musculoskeletal: History of: Back/Neck Problems (chronic back pain) Other: History of: Miscellaneous Medical Problems (Chronic pain syndrome) - Surgical History Cardiac Surgeries: Comment Only: Cardiac Catheterization (Cardiac ablation 1991) Thoracic Surgeries: Patient denies;: Organ Transplant Abdominal Surgeries: Surgical HX of: Hernia Repair (2017) Reproductive Surgeries: Surgical HX of;: Hysterectomy (2015) Orthopedic Surgeries: Surgical HX of;: Orthopedic Surgery (Right ankle; patella ; bilateral shoulder) - Family History Family History: Reports;: Family Cancer (Mother-Breast), Family Hypertension ( Father and Brother) - Social History Smoking Status: Current every day smoker Frequency of Alcohol Use: None Type of Drug Use: None Exam - Constitutional Vitals: Period Temp Pulse Resp BP Sys/Silva Pulse Ox Last 24 Hr 97.4 F-98.3 F 62-89 16-18 96-119/56-79 91-100 Exam: GENERAL: Patient is in no acute distress. NECK: Neck is supple. There is no JVD. No carotid bruits present. No thyroid masses. Positive tongue biting CVS: First and second heart sounds are normal. There is no S3 present. Regular rate and rhythm. RESPIRATORY: Lungs are clear to auscultation without any rales or rhonchi. ABDOMEN: Soft and non-tender. Bowel sounds are present. There is no hepatosplenomegaly. EXT: There is no palpable edema. Peripheral pulses are present. Skin: No rashes Central Nervous system: General: Alert, awake and Oriented x 3 Speech: Fluent Comprehension: Intact and normal Facial expressions: Normal Cranial Nerves: CN1/Olfactory: Normal CN II/ Optic: Normal, Visual [place] unreliable CN III, and : FRANCO & EOMI CN V: Normal & intact CN VII: face is symmetric CNVIII: Normal CN XI/X/XI/XII: Intact and Normal Motor: Bulk and Tone is normal. Strength in the right 5/5 Strength in the left 5/5 Sensory: Grossly intact for all the modalities of PP, LT and temp sense Reflexes: 1+ and symmetrical Cerebellar function: Normal finger to nose and heel to martin testing. Toes: Equivocal Gait: Normal Results - Labs CBC & BMP: 03/23/17 19:14 03/24/17 05:25 Assessment and Plan (1) New onset seizure Status: Acute Assessment and plan: This is likely metabolic in origin secondary to hypoglycemia. Would not recommend to treat at this time. EEG if is not done Thank you for the consult Current Visit: Yes
--- NOTE | 2017-03-25 08:54 | Hospitalist Progress Note ---
Assessment and Plan (1) Anxiety and depression Status: Chronic Assessment and plan: Long-standing history with medical intervention. 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 Current Visit: Yes (2) Generalized seizure Status: Chronic Assessment and plan: History of substance abuse, small vessel intracranial disease, and infrequent but recurrent seizures. Current Visit: Yes (3) Hypoglycemia Status: Acute Assessment and plan: Noted on fingerstick by EMS at the scene. Review of previous laboratory work shows no tendency to hypoglycemia. Current Visit: Yes Hospitalist: Subjective Interval history: 62-year-old female with history of infrequent seizures substance abuse disorder in the past and anxiety depressive illness who had a loss of consciousness while visiting family members. At the scene she is reported to have a blood glucose level of 31 by EMS. She has a history of chronic pain disorder secondary to axial skeletal disease. She has been seen by neurology recommended EEG which is pending. Her CT scan demonstrated microvascular changes predominating. Her current vital signs are stable capillary blood glucoses been stable throughout the hospital stay. Exam - Constitutional Vitals: Period Temp Pulse Resp BP Sys/Silva Pulse Ox Last 24 Hr 97.1 F-98.3 F 66-76 16-20 97-127/54-68 91-97 General appearance: under weight - Respiratory Respiratory exam: Present: clear to auscultation bilaterally. Absent: rales, rhonchi, wheezes - GI/Abdominal GI/Abdominal exam: Present: normal bowel sounds. Absent: tenderness - Extremities Exam Extremities exam: Absent: edema - Neurological Exam Neurological exam: Present: alert, oriented X3 Results - Labs CBC & BMP: 03/23/17 19:14 03/24/17 05:25
[2017-03-25] MEDS: ENOXAPARIN 40 MG/0.4 ML SYRINGE SUBCUT SCH (09:51)
[2017-03-25] MEDS: PANTOPRAZOLE 40 MG TABLET PO SCH (09:51)
[2017-03-25] MEDS: GABAPENTIN 400 MG CAPSULE PO SCH ×4 (09:51→20:28)
[2017-03-25] MEDS: NICOTINE 14 MG/24 HR PATCH TRANSDERM SCH (09:51)
--- NOTE | 2017-03-25 15:33 | Neurology Progress Note ---
Neurology - PN : Subjective Interval history: Patient seems to be doing okay. No new problems reported. No more passing out. EEG showed generalized slowing. Exam (Progress Note) - Constitutional Vitals: Period Temp Pulse Resp BP Sys/Silva Pulse Ox Last 24 Hr 97.1 F-98.4 F 70-76 16-20 97-127/54-63 91-97 Exam: GENERAL: Patient is in no acute distress. NECK: Neck is supple. There is no JVD. No carotid bruits present. No thyroid masses. Positive tongue biting CVS: First and second heart sounds are normal. There is no S3 present. Regular rate and rhythm. RESPIRATORY: Lungs are clear to auscultation without any rales or rhonchi. ABDOMEN: Soft and non-tender. Bowel sounds are present. There is no hepatosplenomegaly. EXT: There is no palpable edema. Peripheral pulses are present. Skin: No rashes Central Nervous system: General: Alert, awake and Oriented x 3 Speech: Fluent Comprehension: Intact and normal Facial expressions: Normal Cranial Nerves: CN1/Olfactory: Normal CN II/ Optic: Normal, Visual [place] unreliable CN III, and : FRANCO & EOMI CN V: Normal & intact CN VII: face is symmetric CNVIII: Normal CN XI/X/XI/XII: Intact and Normal Motor: Bulk and Tone is normal. Strength in the right 5/5 Strength in the left 5/5 Sensory: Grossly intact for all the modalities of PP, LT and temp sense Reflexes: 1+ and symmetrical Cerebellar function: Normal finger to nose and heel to martin testing. Toes: Equivocal Gait: Normal Results - Labs CBC & BMP: 03/23/17 19:14 03/24/17 05:25 Assessment and Plan (1) New onset seizure Status: Acute Assessment and plan: This is likely metabolic in origin secondary to hypoglycemia. Would not recommend to treat at this time. No further intervention. Follow-up in 4-6 weeks Sign off please call as needed Current Visit: Yes Specialty Discharge - Follow Up or Referrals Follow up with: Mark Velez MD [Physician] - 1 Month
[2017-03-25] MEDS: SODIUM CHLORIDE 0.45% 1,000 ML IV SCH (16:42)
--- NOTE | 2017-03-25 18:48 | Electroencephalogram ---
HISTORY: A 62-year-old female with a history of seizures/change in mental status. INTRODUCTION: A digital EEG was performed using the standard 10/20 system of electrode placement wit h one channel of EKG monitoring. Photic stimulation is performed. DESCRIPTION OF RECORD: The background is fairly well organized, consists of 7 to 8 hertz moderate am plitude bilateral symmetrical rhythm. Photic stimulation elicited driving response at slower flash f requencies. Hyperventilation produced no abnormalities. This record is contaminated with muscles an d movement artifacts. Drowsiness is characterized by intermixed 5 to 7 hertz generalized delta-theta activity. Second stage of sleep is not achieved. There are no focal, sharp-wave, spike or wave act ivity seen. Heart rate 60 beats per minute. IMPRESSION: ABNORMAL EEG DUE TO GENERALIZED SLOWING. CLINICAL CORRELATION: This record is supportive of mild encephalopathy, which could be secondary to postictal state, posthypoxic state, metabolic disorder, diffuse INVASIVE CARDIOVASCULAR TECHNOLOGIST insult, or increased intracranial pressure. No epileptiform/seizure activity seen. Clinical correlation is suggested.
[2017-03-25] MEDS ORDERED: AMITRIPTYLINE 50 MG TABLET PO SCH (21:00)
--- NOTE | 2017-03-26 07:07 | Discharge Summary ---
Hospital Course - Hospital Course Hospital Course: 62-year-old female with history of remote substance abuse chronic pain disorder with infrequent seizures described over several years. She sustained a loss of consciousness with possible seizure activity while visiting with family members. At the scene she was found to have a blood sugar of 31 by EMS and was transported to the hospital. Medication review was unremarkable. The patient did confide that she had eaten a large amount of candy prior to the episode to suggest a potential for reactive hypoglycemic episode. Following hospitalization serial capillary blood glucoses were within normal range. No further symptoms were encountered she was seen in consultation by your Neurology with an EEG showing only diffuse slowing. The impression was that this was a metabolic event and no chronic antiseizure interventions were required. She is being discharged at this time with dietary instruction. Diagnosis - Discharge Diagnosis (1) Anxiety and depression Status: Chronic (2) Generalized seizure Status: Chronic (3) Hypoglycemia Status: Acute Specialty Discharge - Follow Up or Referrals Follow up with: Mark Velez MD [Physician] - 1 Month Discharge Plan - Discharge Data Disposition: Disch To Home/Self Care Condition at Discharge: Stable Discharge Diet: advance to your usual diet Activity: resume usual activities as tolerated - Discharge Medications New Nicotine 14 mg/24 Hr Patch [Nicoderm CQ 14 mg/24 hr Patch] 1 patch TRANSDERM DAILY patch HYDROcodone/ACETAMIN 7.5-325 [[place] 7.5-325] 1 tablet PO Q4H PRN tablet PRN Reason: Pain Moderate To Severe (4-10) Continue Gabapentin 800 mg PO QID Atenolol 25 mg PO QAM Amitriptyline [Elavil] 50 mg PO BEDTIME Zolpidem Tartrate [Ambien] 10 mg PO BEDTIME PRN PRN Reason: Insomnia Diazepam Tab [Valium Tab] 5 mg PO BID - Follow Up or Referral Follow Up: Mark Velez MD [Physician] - 1 Month - Forms/Instructions Exam - Constitutional Vitals: Period Temp Pulse Resp BP Sys/Silva Pulse Ox Last 24 Hr 97.3 F-98.4 F 69-84 18-20 116-130/62-78 92-96 Discharge Results Procedures and tests throughout hospitalization: Pending Orders 03/24/17 05:25 C-Peptide IN AM Gastrin, S Routine Labs on day of discharge: Labs from last 24 hours 03/26/17 03/26/17 03/25/17 04:05 00:59 19:41 POC Glucose 107 H 127 H 140 H 03/25/17 03/25/17 03/25/17 17:40 11:18 07:25 POC Glucose 139 H 90 90 DS: Provider Date of admission: 03/23/17 22:06 Primary care physician: Angelo Sheridan Attending physician on admission: Erick Schumacher MD Consults: 03/23/17 22:06 Consult to Physician [CONS] Routine Comment: seizure Consulting Provider: Mark Velez Person Notified: jamie Date Notified: 03/24/17 Time Notified: 12:48 Consult Notification Comment: left message call again @11:52 03/24/17 02:11 Consult to [facility], Educator [CONS] Routine Reason for Orthodontic Technician: Other Consult to Dietitian [CONS] Routine Reason for Dietitian: Dietary Consult Discharging clinician: Julian Mantilla MD Expected date of discharge: 03/26/17
[2017-03-26 08:48] VITALS: BP 116/79
[2017-03-26] MEDS ORDERED: ATENOLOL 25 MG TABLET PO SCH (09:00)
[2017-03-26] MEDS: ENOXAPARIN 40 MG/0.4 ML SYRINGE SUBCUT SCH (09:24)
[2017-03-26] MEDS: PANTOPRAZOLE 40 MG TABLET PO SCH (09:24)
[2017-03-26] MEDS: NICOTINE 14 MG/24 HR PATCH TRANSDERM SCH (09:24)
[2017-03-26] MEDS: GABAPENTIN 400 MG CAPSULE PO SCH (09:24)
[2017-03-26 12:41] LABS: C-Peptide 2.7 ng/mL (1.1 - 4.4)
== END 2017-03-26 12:20 | disposition home or self-care (01) | DRG 644 ==
LOC: EDBD → EDUNIT# → N.ED 19:00 → N.EDINP 22:06 → SUATTDRO 22:06 → N.5E 22:38
PROVIDERS: ADMIT Family Medicine; ATTEND Internal Medicine Cardiovascular Disease